=== PATIENT | male | born 1990 | race Caucasian/White ===

== ENCOUNTER → 2018-04-27 | Outpatient (CLI) | payer OTHER ==
--- NOTE | 2018-04-27 14:20 | RADIOLOGY REPORT (SQ) ---
EXAM DESCRIPTION: NM RENAL WITH LASIX COMPLETED DATE/TIME: 04/27/2018 1:45 pm REASON FOR STUDY: OTHER MICROSCOPIC HEMATURIA (R31.29) R31.29 OTHER MICROSCOPIC HEMATURIA COMPARISON: None. RADIONUCLIDE AND DOSE: 5.5 millicuries Tc-99m MAG 3 The route of agent administration: Intravenous ADDITIONAL DRUGS AND DOSES: Lasix 20 mg. TECHNIQUE: Following administration of the radionuclide, flow images of the kidneys were acquired fo llowed by sequential imaging for 30 minutes. Intravenous Lasix was given at the midpoint of the study . Time activity curves were generated. LIMITATIONS: None. FINDINGS: ACTIVITY LEFT KIDNEY: 53 %. ACTIVITY RIGHT KIDNEY: 47 %. RIGHT KIDNEY There is prompt uptake of activity in the kidneys bilaterally simultaneous with passage of the aortic bolus. There is normal excretion with progression of activity from the renal cortex into the collec ting system and subsequently into the ureters. Time activity curves demonstrate normal excretory pat tern with no abnormal retention. No obstructive changes. LEFT KIDNEY: There is prompt uptake of activity in the kidneys bilaterally simultaneous with passage of the aortic bolus. There is normal excretion with progression of activity from the renal cortex into the collec ting system and subsequently into the ureters. There is some accumulation of activity in a mildly di lated left renal pelvis. This activity washes out with Lasix, without significant obstructive change IMPRESSION: Normal right Lasix renogram Left Lasix renogram demonstrates accumulation of activity in the left renal pelvis which washes out a fter Lasix. This suggests against functional ureteropelvic junction obstruction. TECHNICAL DOCUMENTATION: JOB ID: [id number] [employer]- All Rights Reserved Reading location - IP/workstation name: [id number]
== END ==
LOC: RAD 10:53
PROVIDERS: ATTEND Urology
DX: R31.29 Other microscopic hematuria (principal)
CPT/HCPCS: 78708; A9562